=== PATIENT | male | born 1985 | race Caucasian/White ===

== ENCOUNTER 2018-10-14 18:47 | Emergency (ER) | payer OTHER, SELFPAY ==
--- NOTE | 2018-10-14 18:49 | ED.RN ---
NO OLD EKGS IN MUSE
[2018-10-14 18:51] VITALS: BP 166/104; PULSE 70; RESP 20; TEMP 36.8; O2SAT 99; BMI 31.2
--- NOTE | 2018-10-14 18:51 | EKG12_ITS ---
Test Reason : CP Blood Pressure : / mmHG Vent. Rate : 065 BPM Atrial Rate : 065 BPM P-R Int : 148 ms QRS Dur : 098 ms QT Int : 426 ms P-R-T Axes : 049 012 028 degrees QTc Int : 443 ms Normal sinus rhythm Normal ECG Confirmed by ROYA ATKINS, ANDRE ([id number]), editor sound HASMUKH GARCÍA ([id number]) on 10/16/2018 4:21:14 PM Referred By: CHERYLE Confirmed By:ANDRE PRYOR MD
--- NOTE | 2018-10-14 18:53 | ED.VISSUMM ---
- ER Visit Summary Date of Service: 10/14/18 Chief Complaint: Chest pain History of Present Illness: The patient is a 32 M presents the emergency department chest pain. Patient states symptoms began yesterday. He states he was getting up out of the chair and had a sudden onset pain in his chest. It did not radiate to his back or to his arms. He states he never really had pain like this before. He states it would come and go, but today has been constant. He states he feels like he can feel his heart beating in his chest. He has no history of coronary vascular disease. He takes no daily medications. He does not smoke. He denies any other systemic complaints. Physical Examination: Vital signs reviewed General: Well-nourished, well-developed Head: Normocephalic, atraumatic Eyes: Pupils equal and reactive, extraocular muscles intact Neck, supple, no lymphadenopathy Heart: Regular rate and rhythm Respiratory: No distress, clear bilaterally Abdomen: Soft, nontender, nondistended, no peritoneal signs Back: Nontender Extremities: Nontender, no edema, no cords Skin: Normal color no rash Neuro: Alert and oriented, no focal or lateralizing deficits Test Results: [] Emergency Department Course and Treatment: The patient's pain does seem very atypical. It is worse when he moves. I really cannot reproduce it on exam. His EKG is obtained and is workable. There is no acute ischemia. Chest x-ray is also unremarkable. Cardiac enzymes are normal. The patient has had constant pain for greater than 12 hours. I do feel that the safely rules him out for acute coronary syndrome. He has a heart score of 0. I do not feel that repeat enzymes are necessary given his constant pain, negative EKG, negative workup. At this time, I do feel the patient is safe for outpatient follow-up. He is counseled on concerning symptoms and reasons to return. He will be discharged home. Treatment Plan: [] Disposition: Discharge Impression: 1. Chest pain This note was generated with [employer] dictation software. It may contain incorrect words, spelling, and punctuation that were not noted in review of the chart prior to signing ED Disposition - Plan for ED Patient: Chief Complaint: Chest Pain Instructions: ED Chest Pain Atypical Unkn Cause Referrals: Dhruv Mota DO [NON CLINICAL AFFILIATE] -
--- NOTE | 2018-10-14 18:55 | RAD_ITS ---
STUDY: X-RAY CHEST REASON FOR EXAM: Male, 32 years old. Chest pain. TECHNIQUE: Portable chest. COMPARISON: None. FINDINGS: The lungs are clear and expanded. There is no demonstrated pleural abnormality. Normal size heart. Normal mediastinum and samara. Normal visualized pulmonary arteries. Normal visualized aortic arch and descending thoracic aorta. Normal visualized thoracic spine. Normal visualized ribs, clavicles, and shoulders. There is no demonstrated abnormality of the visualized soft tissue structures of the upper abdomen. RAD/Chest 1 View (Portable) IMPRESSION: Normal x-ray examination of the chest. Electronically Signed: Indiana Farooq MD at 19:50 EST Tel , Service support ,
[2018-10-14] MEDS: Aspirin 81 MG TAB.CHEW 324 MG PO (18:57)
[2018-10-14] MEDS: 0.9% Normal Saline 1,000 ML 150 ML IV (18:59)
[2018-10-14 19:17] LABS: Absolute Neutrophil Count 6.5 X10^3/uL (2.0-7.7); Basophil# 0.02 X10^3/uL; Basophil% 0.2 % (0-1); Eosinophil# 0.12 X10^3/uL; Eosinophils% 1.2 % (0-5); Hematocrit 43.3 % (40-54); Hemoglobin 15.2 g/dl (13.0-16.5); Lymphocyte % 24.8 % (19-41); Mean Corp Hgb Conc 35.1 g/gl (32-36); Mean Corpuscular Hgb 29.9 pg (27.0-32.0); Mean Corpuscular Volume 85.1 fL (80-94); Mean Platelet Vol. 9.9 fl (6.2-12.0); Monocyte% 6.2 % (0-10); Neutrophil % 67.4 % (47-70); Platelet Count 244 K/mm3 (150-450); RBC Distribution Width CV 11.8 % (11.6-14.6); RBC Distribution Width SD 36.6 fl (35.1-43.9); Red Blood Count 5.09 M/mm3 (4.6-6.2); White Blood Count 9.7 K/mm3 (4.4-11.0)
[2018-10-14 19:18] LABS: POSITIVE COUNT NO; POSITIVE DIFFERENTIAL NO; POSITIVE MORPHOLOGY NO
[2018-10-14 19:27] LABS: Anion Gap 6 (5-15); BUN 9 mg/dL (7-18); BUN/Creat Ratio 9.2 RATIO (10-20); Calcium,Total 8.9 mg/dL (8.5-10.1); Chloride 103 mmol/L (98-107); Creatinine, Serum 0.97 mg/dL (0.70-1.30); EST Glomerular Filtration Rate 94 mL/min (>60); Est Glom Filt Rate - Afr Amer 114 mL/min (>60); Estimated Creatinine Clearance 130.67 ml/min; Glucose 92 mg/dL (74-106); Potassium 3.7 mmol/L (3.5-5.1); Sodium Level 137 mmol/L (136-145)
[2018-10-14 19:51] VITALS: BP 157/92; PULSE 71; RESP 16; O2SAT 99
== END 2018-10-14 19:52 | disposition home or self-care (01) ==
LOC: ED 19:09
PROVIDERS: Emergency Provider Emergency Medicine
DX: R07.9 Chest pain, unspecified (principal)
CPT/HCPCS: 71045; 80048; 84484; 85025; 93005; 96360; 99284; J7030

== ENCOUNTER 2020-10-19 17:40 | Emergency (ER) | payer OTHER, SELFPAY ==
[2020-10-19 17:41] VITALS: BP 158/76; PULSE 78; RESP 18; TEMP 36.6; O2SAT 100; BMI 29.9
--- NOTE | 2020-10-19 17:47 | EKG12_ITS ---
Test Reason : CP Blood Pressure : / mmHG Vent. Rate : 069 BPM Atrial Rate : 069 BPM P-R Int : 152 ms QRS Dur : 104 ms QT Int : 416 ms P-R-T Axes : 074 054 050 degrees QTc Int : 445 ms Normal sinus rhythm Normal ECG Confirmed by STEVIE ATKINS, BONNIE ([id number]), editor book BREE PERALTA ([id number]) on 10/21/2020 9:41:10 AM Referred By: BEV Confirmed By:BONNIE HUBBARD MD
--- NOTE | 2020-10-19 17:50 | RAD_ITS ---
STUDY: X-RAY CHEST REASON FOR EXAM: Male, 34 years old. CP started this am to mid chest, pain is now going to rt jaw TECHNIQUE: Single frontal view of the chest. COMPARISON: Chest x-ray 10/14/2018 FINDINGS: The lungs are clear and expanded. There is no demonstrated pleural abnormality. Normal size heart. Normal mediastinum and samara. Normal visualized pulmonary arteries. Normal visualized aortic arch and descending thoracic aorta. Normal visualized thoracic spine. Normal visualized ribs, clavicles, and shoulders. There is no demonstrated abnormality of the visualized soft tissue structures of the upper abdomen. RAD/Chest 1 View (Portable) IMPRESSION: Normal x-ray examination of the chest. Electronically Signed: Eladio Hale MD at 18:37 EST , Service support ,
[2020-10-19 18:21] LABS: Absolute Lymphocyte Count 4.11 X10^3/uL (0.83-4.51); Absolute Neutrophil Count 5.1 X10^3/uL (2.0-7.7); Basophil# 0.03 X10^3/uL; Basophil% 0.3 % (0-1); Eosinophil# 0.11 X10^3/uL; Eosinophils% 1.1 % (0-5); Hematocrit 40.1 % (40-54); Hemoglobin 14.3 g/dL (13.0-16.5); Lymphocyte # 4.11 X10^3/ul (4.0); Mean Corp Hgb Conc 35.7 g/dL (32-36); Mean Corpuscular Volume 84.2 fL (80-94); Mean Platelet Vol. 9.7 fl (6.2-12.0); Monocyte# 0.69 X10^3/uL; Monocyte% 6.9 % (0-10); NRBC Flagged by Analyzer 0 % (0-5); Neutrophil # 5.05 X10^3/uL (2.7-7.7); Neutrophil % 50.4 % (47-70); Platelet Count 236 K/mm3 (150-450); RBC Distribution Width SD 36.5 fl (35.1-43.9); Red Blood Count 4.76 M/mm3 (4.6-6.2)
[2020-10-19 18:32] VITALS: BP 145/87; PULSE 79; RESP 16; O2SAT 98
--- NOTE | 2020-10-19 18:36 | ED.DCSUM_ITS ---
- ER Visit Summary Date of Service: 10/19/20 Chief Complaint: Chest pain History of Present Illness: The patient is a 34 M with no primary care physician. He reports that he has chest pain began this morning. Radiates up into the right side of his jaw. Said continuous pain that waxes and wanes. He describes this as a tightness. Is 3-10 worsened 2 out of 10 currently. Is worsened by nothing including exertion or deep breaths. Also relieved relieved by nothing. He denies any associated nausea, vomiting, diaphoresis, or shortness of breath. He reports that a similar episode 2 years ago. He is never had a stress test or heart catheterization. He does have a family history of coronary artery disease. No ankle swelling or calf pain. No personal or family history of DVT. No recent travel. He denies any chest pain with exertion or change in dyspnea exertion in the past month. Physical Examination: Vitals: Stable. Afebrile. General: Well-nourished and well-developed. Head: Normocephalic atraumatic. Neck: Supple, no lymphadenopathy. No JVD. Nontender. Cardiovascular: Regular rate and rhythm. No murmurs. Respiratory: No respiratory distress. Clear to auscultation bilaterally. Abdominal: Soft, nontender, nondistended, normal bowel sounds. No guarding, rebound, or peritoneal signs. Back: Nontender. Extremities: Nontender, no edema. Skin: Normal color, no rash. Neurologic: Alert and oriented ?3. Cranial nerves II through XII are intact. Normal strength and sensation. Psych: Normal affect. Test Results: EKG is sinus at 69 with no acute changes. CBC is normal. Chem-7 shows potassium 3.3. Troponin is negative. Clinical Impression(s) from Imaging Studies Chest X-Ray 10/19/20 17:50 IMPRESSION: Normal x-ray examination of the chest. Electronically Signed: Eladio Hael MD at 18:37 EST , Service support , Emergency Department Course and Treatment: Patient had an IV placed. He refused pain medications. He is resting comfortably. Treatment Plan: Patient will be discharged instructions to follow-up with Dr. Donohue as soon as possible. Return to the emergency department for any worsening symptoms. Disposition: To home in improved and stable condition. Impression: 1. Atypical chest pain. 2. MIHIR score of 0. 3. Heart score of 1. This note was generated with [employer] dictation software. It may contain incorrect words, spelling, and punctuation that were not noted in review of the chart pr ior to signing ED Disposition - Plan for ED Patient: Instructions: ED Chest Pain, Uncertain Cause Referrals: Bambi Donohue MD [STAFF PHYSICIAN] - As soon as possible
[2020-10-19 18:38] LABS: Anion Gap 6 (5-15); BUN 11 mg/dL (7-18); BUN/Creat Ratio 12.4 RATIO (10-20); Calcium,Total 8.7 mg/dL (8.5-10.1); Chloride 102 mmol/L (98-107); Creatinine, Serum 0.89 mg/dL (0.70-1.30); EST Glomerular Filtration Rate 104 mL/min (>60); Est Glom Filt Rate - Afr Amer 126 mL/min (>60); Estimated Creatinine Clearance 139.78 ml/min; Glucose 92 mg/dL (74-106); Potassium 3.3 mmol/L (3.5-5.1); Sodium Level 135 mmol/L (136-145)
[2020-10-19 19:01] VITALS: BP 145/80; PULSE 76; RESP 16
== END 2020-10-19 19:02 | disposition home or self-care (01) ==
LOC: ED 18:22
PROVIDERS: Emergency Provider Emergency Medicine
DX: R07.89 Other chest pain (principal)
CPT/HCPCS: 71045; 80048; 84484; 85025; 93005; 99284

== ENCOUNTER → 2020-11-09 14:28 | Outpatient (CLI) | payer OTHER, SELFPAY ==
[2020-11-09 13:56] VITALS: BMI 32.2
[2020-11-09 16:44] LABS: ALB/GLOB Ratio 1.3 RATIO (0.9-2.4); AST(SGOT) 14 U/L (15-37); Alanine Aminotransfer ALT/SGPT 31 U/L (16-61); Albumin, Serum 4.6 g/dL (3.2-5.0); Alkaline Phosphatase 95 U/L (45-117); Anion Gap 4 (5-15); BUN 7 mg/dL (7-18); BUN/Creat Ratio 8.7 RATIO (10-20); Chloride 103 mmol/L (98-107); Cholesterol 192 mg/dL (200); EST Glomerular Filtration Rate 116 mL/min (>60); Est Glom Filt Rate - Afr Amer 140 mL/min (>60); Globulin 3.6 g/dL (2.2-4.2); Glucose 84 mg/dL (74-106); High Density Lipoprotein 53 mg/dL; Potassium 4.2 mmol/L (3.5-5.1); Protein, Total 8.2 g/dL (6.4-8.2); Sodium Level 137 mmol/L (136-145); Triglycerides 68 mg/dL; Very Low Density Lipoprotein 14 mg/dL (5-40)
== END ==
PROVIDERS: PCP Internal Medicine; Visit Provider Internal Medicine
DX: I10 Essential (primary) hypertension (principal); E87.6 Hypokalemia
CPT/HCPCS: 36415; 80053; 80061

== ENCOUNTER → 2020-11-18 09:45 | Outpatient (CLI) | payer OTHER, SELFPAY ==
[2020-11-09 13:56] VITALS: BMI 32.2
--- NOTE | 2020-11-18 12:50 | STRESSREP ---
Stress Test Report Exercise stress test. 35-year-old man with a history of chest pain. Stress protocol: Resting EKG demonstrates normal sinus rhythm with a rate of 71 bpm normal intervals are noted resting blood pressure is 132/82 mmHg. The patient exercised according to regular Evan protocol for a total duration of 13 minutes. The maximum heart rate attained was 176 bpm which was 95% of max impacted heart rate the maximum workload was 15.3 metabolic equivalents. At rest there were no ST or T wave changes noted suggest ischemia peak exercise upsloping ST changes were noted we did not meet the criteria for ischemia. No chest pain was noted the exercise test was stopped due to attainment of target heart rate. No clinical angina was noted the peak blood pressure was 206/72 mmHg. Conclusion: Exercise stress test with no EKG criteria for ischemia at a high workload. Excellent functional capacity. No clinical angina.
== END ==
PROVIDERS: PCP Internal Medicine; Referring Provider Internal Medicine; Visit Provider Internal Medicine
DX: R07.89 Other chest pain (principal)
CPT/HCPCS: 93017

== ENCOUNTER 2021-04-29 19:59 | Emergency (ER) | payer OTHER, SELFPAY ==
[2020-12-10 17:18] VITALS: BMI 32.7
[2021-04-29 20:00] VITALS: BP 167/84; PULSE 62; RESP 18; TEMP 37.1; O2SAT 98; BMI 28.7
--- NOTE | 2021-04-29 20:18 | CT_ITS ---
STUDY: CT BRAIN WITHOUT CONTRAST REASON FOR EXAM: Male, 35 years old. headache with dizziness and woosh sound in his ears RADIATION DOSAGE (If Supplied By Facility): CTDIvol = ( 30.48 ) mGy, DLP = ( 1534.04 ) mGycm TECHNIQUE: Transaxial CT imaging of the brain was performed without administration of intravenous contrast material. Individualized dose optimization techniques were used for this CT. COMPARISON: None. FINDINGS: Normal soft tissue structures. Normal calvarium. Normal size ventricles and extra-axial spaces for the patient''s age. Normal white matter tracts of the cerebral hemispheres. Normal basal ganglia and thalami. Normal brainstem. Normal cerebellum. There is no intracranial hemorrhage. There are no findings of an acute ischemic infarction. Normal visualized paranasal sinuses. IMPRESSION: Normal unenhanced CT scan of the brain. STUDY: CTA HEAD AND NECK WITH CONTRAST REASON FOR EXAM: Male, 35 years old. headache RADIATION DOSAGE (If Supplied By Facility): CTDIvol = ( 30.48 ) mGy, DLP = ( 1534.04 ) mGycm TECHNIQUE: CT angiography was performed with a multi-detector CT scanner. Data acquisition was obtained from the skull base through the vertex following intravenous administration of IV 100mL [id number]-[id number]. MIP images were reconstructed from the axial data set. Post-processing of the angiographic images was performed, with multiplanar reformation and 3D reconstruction. Individualized dose optimization techniques were used for this CT. COMPARISON: No relevant priors. FINDINGS: Normal bilateral petrous carotid arteries. Normal right cavernous carotid artery with a normal supraclinoid bifurcation. Normal left cavernous carotid artery with a normal supraclinoid bifurcation. Normal right A1 segments of the anterior cerebral artery. Normal left A1 segments of the anterior cerebral artery. Normal intact anterior communicating artery (ACOM). Normal bilateral A2 segments of the anterior cerebral arteries. Normal right M1 and M2 segments of the middle cerebral arteries, with a normal M1 bifurcation. Normal left M1 and M2 segments of the middle cerebral arteries, with a normal M1 bifurcation. Normal right posterior communicating artery (PCOM). There is non-visualization of the left posterior communicating artery (PCOM). Normal bilateral vertebral arteries. Normal basilar artery with a normal basilar bifurcation. The visualized bilateral superior cerebellar (SCA) arteries are normal. Normal bilateral P1, P2 and visualized P3 segments of the posterior cerebral arteries. There is no demonstrated aneurysm of the [place]. There is no demonstrated abnormality of the visualized brain. AORTIC ARCH: Normal visualized aortic arch. Normal origins of the brachiocephalic, left common carotid, and left subclavian arteries. RIGHT CAROTID ARTERIES: Normal right common carotid artery (CCA). Normal right common carotid bulb. Normal origin of the right internal carotid (ICA) artery without a hemodynamically significant stenosis. Normal visualized cervical portion of the right internal carotid artery. Normal origin of the right external carotid artery (ECA). LEFT CAROTID ARTERIES: Normal left common carotid artery (CCA). Normal left common carotid bulb. Normal origin of the left internal carotid (ICA) artery without a hemodynamically significant stenosis. Normal visualized cervical portion of the left internal carotid artery. Normal origin of the left external carotid artery (ECA). VERTEBRAL ARTERIES: There is enhancement within the bilateral vertebral arteries with a small right vertebral artery, and a dominant left vertebral artery. CT/CTA Head AND Neck W/ Contrast IMPRESSION: Normal CTA Head and neck with contrast. Electronically Signed: Rolf Champion MD at 21:56 EDT , Service support ,
--- NOTE | 2021-04-29 20:18 | EDS_ITS ---
HPI History of Present Illness Chief Complaint: Dizziness Detail of Chief Complaint: Headache and dizziness Informant: patient Onset/Context/Timing Current Severity: 0/10 Narrative Narrative: Patient presents to the emergency department with complaint of a headache that started 5 days ago. Patient states the headache came on suddenly and woke him up from sleep about 5:15 AM. Described it as right frontal. He complained of sounds bothering him at that time. Patient states that the headache eventually went away but he has been having intermittent lightheaded spells daily about 4-6 episodes per day. This morning he had a headache once again that caused him to have nausea and he vomited as well. Patient has been hearing a roaring or swishing sound in his right ear. Patient spoke with his mother who is a retired nurse she was concerned about aneurysm or brain tumor as both she and her brother had pituitary tumors. No family history of brain aneurysms. Patient does not have a history of migraines. Patient's mother does have migraines. Patient currently does not have a headache. Prior similar symptoms: No PFSH PFSH Medical History (Updated 04/29/21 @ 22:[address] Mariza Mckeon DO) History of fracture of finger History of fracture of nose Hypertension Home Medications NK 04/29/21 [History Last Taken Unknown] Allergy/AdvReac Type Severity Reaction Status Date / Time No Known Allergies Allergy Verified 04/29/21 20:03 Family History Father Hyperlipemia Grandfather Hyperlipemia Uncle Myocardial infarction, Onset Age: 56 Surgical History History of tonsillectomy Social History (Updated 12/10/20 @ 17:[address] Bambi Donohue MD) Smoking Status: Never smoker alcohol intake: current alcohol intake frequency: a few times a week substance use type: does not use what type of physical activity do you participate in: running and weight training frequency: daily ROS ROS ED Constitutional Constitutional ED: Reports systems reviewed and no addt'l complaints, except as documented; Denies body ache(s), change in weight or chills Eyes Eyes: Denies acute decrease in peripheral vision, change in vision, double vision or loss of vision ENT ENT ED: Reports none; Denies ear pain, lip swelling, loss taste/smell, neck pain, otalgia or sore throat Cardiovascular Cardiovascular: Reports none; Denies abdominal pain, chest pain with activity, leg edema, lightheadedness, palpitations, rapid heart rate or syncope Respiratory/Chest Respiratory/Chest: Reports none; Denies change in mental status, dry cough, dyspnea, hemoptysis, shortness of breath at rest or shortness of breath with exertion Gastrointestinal Gastrointestinal: Reports none; Denies abdominal pain, change in stool charac ter, diarrhea, hematemesis, hematochezia, melena, rectal bleeding or vomiting Genitourinary Genitourinary ED: Reports none; Denies abdominal discomfort, anuria, dysuria, genital pain or polyuria Musculoskeletal Musculoskeletal: Reports none; Denies arthralgias, back pain, difficulty walking, extremity pain, muscle weakness or myalgias Integumentary Reports none; Denies abscess or rash Neurologic Neurologic: Reports headache(s) and other Details: Lightheadedness and dizziness Psychiatric Psychiatric: Reports systems reviewed and no addt'l complaints, except as documented and none; Denies behavioral changes, confusion, difficulty concentrating, hallucinations, suicidal ideation, tactile hallucinations or visual hallucinations Endocrine Endocrinology: Denies none, cold intolerance, excessive sweating, fatigue or heat intolerance Hematologic/Lymphatic Hematologic/Lymphatic: Reports none; Denies anemia, easy bleeding or easy bruising Allergic/Immunologic Allergic/Immunologic ED: Denies as per HPI, none, lip swelling, mouth swelling, throat swelling, tongue swelling or hives EXAM Physical Exam Const Vital Signs: 04/29/21 20:00 04/29/21 20:17 04/29/21 22:00 Temperature 98.8 F Temperature Source Temporal Pulse Rate 62 59 L Respiratory Rate 18 15 Respiratory Effort Normal Non-Labored Respiratory Pattern Normal Blood Pressure 167/84 H 147/80 H Blood Pressure Mean 111 102 Pulse Ox 98 98 Oxygen Delivery Method Room Air Room Air Positive well nourished and well developed General Appearance ED: well developed and NAD HEENT Reports TM's clear and moist mucous membranes normocephalic and atraumatic; Negative for trauma or tenderness Tympanic Membrane ED: Yes TM's clear Eyes PERRL and EOMs intact bilaterally General Eye ED: Negative for pale conjunctiva or scleral icterus Neck no lymphadenopathy, supple and no JVD General: Negative for tenderness Chest Wall inspection of chest normal and palpation of chest normal Chest: Negative for tenderness Resp normal respiratory effort and clear to auscultation bilaterally Effort and Inspection: Negative for respiratory distress or pain with movement Auscultation: Negative for rhonchi, wheezes or diminished lung sounds Cardio regular rate, regular rhythm, S1 normal heart sound, S2 normal heart sound and no murmurs Peripheral Pulses: pulses 2+ throughout GI normal to inspection, nondistended, normoactive bowel sounds, soft to palpation, non-tender, non-distended and no masses Back/Spine no CVA tenderness and no thoracic nor lumbar tenderness Extremity normal to inspection General Extremety ED: Negative for edema General Extremity: Negative for edema Neuro oriented x3, CN's II-XII intact bilaterally, no sensory deficits noted and gait normal Sensorium / Orientation: awake, alert, oriented to person, oriented to place and oriented to time Motor Exam: strength 5/5 throughout and strength abnormal Psych mental status grossly normal Skin no rashes or lesions noted and no wounds MDM MDM MDM Narrative Medical decision making narrative: Patient's work-up unremarkable in the emergency department. I suspect patient may be having migraines. Patient to follow-up with primary care physician in 3 to 5 days. Patient advised to return if worsening headache, difficulty with balance or speech, or condition should worsen any way. Lab Data Attestation: I reviewed the patient's lab results. Labs: Laboratory Results - last 24 hr 04/29/21 04/29/21 20:11 20:11 WBC 9.1 RBC 4.59 L Hgb 13.6 Hct 39.1 L MCV 85.2 MCH 29.6 MCHC 34.8 RDW Std Deviation 34.9 L RDW Coeff of Wendy 11.4 L Plt Count 245 MPV 9.7 Immature Gran % (Auto) 0.200 Neut % (Auto) 65.3 Lymph % (Auto) 26.9 [place] % (Auto) 7.1 Eos % (Auto) 0.3 Baso % (Auto) 0.2 Absolute Neuts (auto) 5.9 Absolute Lymphs (auto) 2.45 Nucleated RBC % 0 Sodium 137 Potassium 3.6 Chloride 103 Carbon Dioxide 28.0 Anion Gap 6 BUN 7 Creatinine 0.92 Estim Creat Clear Calc 133.94 Est GFR (MDRD) Af Amer 121 Est GFR (MDRD) Non-Af 100 BUN/Creatinine Ratio 7.6 L Glucose 101 Calcium 8.9 Radiography Diagnostic Testing: Radiology Impression Head/Neck CTA 04/29/21 20:18 IMPRESSION: Normal CTA Head and neck with contrast. Electronically Signed: Rolf Champion MD at 21:56 EDT , Service support , Discharge Plan Triage Chief Complaint: Dizziness ED Provider: Mariza Mckeon Dx/Rx/DC Orders Clinical Impression: Migraine Instructions: ED Dizziness, Uncertain Cause, ED, Migraine (Classical) Prescriptions: No Action NK RF: 0 Primary Care Provider: Bambi Donohue Referrals: Bambi Donohue MD [Primary Care Provider] - 3-5 Days Disposition Disposition: Home, self care
[2021-04-29 20:24] LABS: Absolute Lymphocyte Count 2.45 X10^3/uL (0.83-4.51); Absolute Neutrophil Count 5.9 X10^3/uL (2.0-7.7); Basophil# 0.02 X10^3/uL; Basophil% 0.2 % (0-1); Eosinophil# 0.03 X10^3/uL; Eosinophils% 0.3 % (0-5); Hematocrit 39.1 % (40-54); Hemoglobin 13.6 g/dL (13.0-16.5); Lymphocyte # 2.45 X10^3/ul (0.83-4.51); Lymphocyte % 26.9 % (19-41); Mean Corp Hgb Conc 34.8 g/dL (32-36); Mean Corpuscular Hgb 29.6 pg (27.0-32.0); Mean Corpuscular Volume 85.2 fL (80-94); Mean Platelet Vol. 9.7 fl (6.2-12.0); Monocyte# 0.65 X10^3/uL; Monocyte% 7.1 % (0-10); NRBC Flagged by Analyzer 0 % (0-5); Neutrophil # 5.94 X10^3/uL (2.7-7.7); Neutrophil % 65.3 % (47-70); Platelet Count 245 K/mm3 (150-450); RBC Distribution Width CV 11.4 % (11.6-14.6); RBC Distribution Width SD 34.9 fl (35.1-43.9); Red Blood Count 4.59 M/mm3 (4.6-6.2); White Blood Count 9.1 K/mm3 (4.4-11.0)
[2021-04-29 20:34] LABS: Anion Gap 6 (5-15); BUN 7 mg/dL (7-18); BUN/Creat Ratio 7.6 RATIO (10-20); Calcium,Total 8.9 mg/dL (8.5-10.1); Chloride 103 mmol/L (98-107); Creatinine, Serum 0.92 mg/dL (0.70-1.30); EST Glomerular Filtration Rate 100 mL/min (>60); Est Glom Filt Rate - Afr Amer 121 mL/min (>60); Estimated Creatinine Clearance 133.94 ml/min; Glucose 101 mg/dL (74-106); Potassium 3.6 mmol/L (3.5-5.1); Sodium Level 137 mmol/L (136-145)
[2021-04-29 22:00] VITALS: BP 147/80; PULSE 59; RESP 15; O2SAT 98
== END 2021-04-29 22:19 | disposition home or self-care (01) ==
PROVIDERS: Emergency Provider Emergency Medicine; PCP Internal Medicine
DX: G43.909 Migraine, unspecified, not intractable, without status migrainosus (principal)
CPT/HCPCS: 70496; 70498; 80048; 85025; 99283; Q9967; A4216

== ENCOUNTER → 2021-05-05 | Outpatient (CLI) | payer OTHER, SELFPAY ==
[2021-05-04 08:35] VITALS: BMI 28.7
[2021-05-10 20:07] LABS: Metanephrine, Ur 23 ug/L (Undefined); Normetanephrines, 24Ur 260 ug/24 hr (156-729); Normetanephrines, Ur 49 ug/L (Undefined)
[2021-05-11 11:04] LABS: Metanephrines, 24Ur 122 ug/24 hr (58-276)
== END | disposition home or self-care (01) ==
LOC: LABSPEC 09:58
PROVIDERS: PCP Internal Medicine; Referring Provider Internal Medicine; Visit Provider Internal Medicine
DX: I10 Essential (primary) hypertension (principal)
CPT/HCPCS: 81050; 83835

== ENCOUNTER 2021-05-19 18:15 | Emergency (ER) | payer OTHER, SELFPAY ==
[2021-05-04 08:35] VITALS: BMI 28.7
--- NOTE | 2021-05-19 18:18 | CT_ITS ---
We are attempting to reach an attending provider to discuss findings. An addendum with communication details will be sent when the communication is complete. STUDY: CT HEAD STROKE PROTOCOL W/O CONTRAST INJECTION REASON FOR EXAM: Male, 35 years old. EYE DISTRURBANCE RADIATION DOSAGE (If Supplied By Facility): CTDIvol = ( ) mGy, DLP = ( ) mGycm TECHNIQUE: Transaxial CT imaging of the brain was performed without administration of intravenous contrast material. Individualized dose optimization techniques were used for this CT. COMPARISON: No relevant priors. FINDINGS: Normal soft tissue structures. Normal calvarium. Normal size ventricles and extra-axial spaces for the patient''s age. Normal white matter tracts of the cerebral hemispheres. Normal basal ganglia and thalami. Normal brainstem. Normal cerebellum. There is no intracranial hemorrhage. There are no findings of an acute ischemic infarction. Normal visualized paranasal sinuses. ASPECT score: CT/STROKE Brain/Head without Cont IMPRESSION: Normal unenhanced CT scan of the brain. Electronically Signed: Duong Corbett MD at 18:35 EDT Tel , Service support ,
--- NOTE | 2021-05-19 18:21 | EKG12_ITS ---
Test Reason : STROKE Blood Pressure : / mmHG Vent. Rate : 056 BPM Atrial Rate : 056 BPM P-R Int : 156 ms QRS Dur : 100 ms QT Int : 428 ms P-R-T Axes : 016 026 038 degrees QTc Int : 413 ms Sinus bradycardia RSR' or QR pattern in V1 suggests right ventricular conduction delay Borderline ECG Confirmed by ROYA ATKINS, ANDRE ([id number]), marketing editor BREE PERALTA ([id number]) on 05/21/2021 1:09:50 PM Referred By: MIREYA Confirmed By:ANDRE PRYOR MD
[2021-05-19 18:28] VITALS: BP 154/88; PULSE 55; RESP 12; TEMP 36.5; O2SAT 100
[2021-05-19 18:32] LABS: Absolute Lymphocyte Count 3.06 X10^3/uL (0.83-4.51); Absolute Neutrophil Count 5.6 X10^3/uL (2.0-7.7); Basophil# 0.02 X10^3/uL; Basophil% 0.2 % (0-1); Eosinophil# 0.11 X10^3/uL; Eosinophils% 1.2 % (0-5); Hematocrit 40.7 % (40-54); Hemoglobin 14.1 g/dL (13.0-16.5); Lymphocyte # 3.06 X10^3/ul (0.83-4.51); Lymphocyte % 32.2 % (19-41); Mean Corp Hgb Conc 34.6 g/dL (32-36); Mean Corpuscular Hgb 29.3 pg (27.0-32.0); Mean Corpuscular Volume 84.4 fL (80-94); Mean Platelet Vol. 9.7 fl (6.2-12.0); Monocyte# 0.68 X10^3/uL; Monocyte% 7.2 % (0-10); NRBC Flagged by Analyzer 0 % (0-5); Platelet Count 270 K/mm3 (150-450); RBC Distribution Width CV 11.4 % (11.6-14.6); RBC Distribution Width SD 34.8 fl (35.1-43.9); Red Blood Count 4.82 M/mm3 (4.6-6.2); White Blood Count 9.5 K/mm3 (4.4-11.0)
[2021-05-19 18:33] VITALS: TEMP 36.5; BMI 28.9
[2021-05-19 18:45] LABS: Anion Gap 7 (5-15); BUN 8 mg/dL (7-18); BUN/Creat Ratio 9.4 RATIO (10-20); Calcium,Total 8.5 mg/dL (8.5-10.1); Chloride 102 mmol/L (98-107); Creatinine, Serum 0.85 mg/dL (0.70-1.30); EST Glomerular Filtration Rate 109 mL/min (>60); Est Glom Filt Rate - Afr Amer 132 mL/min (>60); Estimated Creatinine Clearance 144.98 ml/min; Glucose 104 mg/dL (74-106); Potassium 4.1 mmol/L (3.5-5.1); Sodium Level 138 mmol/L (136-145)
--- NOTE | 2021-05-19 18:55 | NURSING ---
Intermittent L arm parasthesias- and numbness around mouth- Dr. Mustafa made aware.
[2021-05-19 19:15] VITALS: BP 126/82; PULSE 55; RESP 14; O2SAT 100
[2021-05-19 19:23] LABS: International Normalized Ratio 1.1; Prothrombin Time (Protime)PT. 13.2 SECONDS (11.7-14.9)
--- NOTE | 2021-05-19 19:37 | EX.ED.DYSGE1 ---
HPI History of Present Illness Chief Complaint: Numb/Ting Narrative Narrative: Patient has a history of migraines these were recently diagnosed, he had some numbness and some decreased left-sided peripheral vision that was very transient about 5 minutes. Now he has some pressure in the front of his head. He had a recent work-up including normal cervical vessels. He has no fever chills he has no neck pain or stiffness. [facility] Medical History (Updated 05/19/21 @ 19:[address] James Mustafa MD) History of fracture of finger History of fracture of nose Hypertension Migraine Home Medications hydroxycut PO 05/04/21 [History Last Taken Unknown] multivitamin 1 tab PO DAILY 05/04/21 [History Last Taken Unknown] propranolol 60 mg capsule,24 hr,extended release 60 mg PO QHS #30 cap 05/04/21 [Rx Last Taken Unknown] sumatriptan succinate 25 mg tablet See Rx Instructions PO .COMPLEX #10 tab 05/04/21 [Rx Last Taken Unknown] Allergy/AdvReac Type Severity Reaction Status Date / Time No Known Allergies Allergy Verified 05/04/21 08:32 Family History Father Hyperlipemia Grandfather Hyperlipemia Uncle Myocardial infarction, Onset Age: 56 Surgical History History of tonsillectomy Social History Smoking Status: Never smoker alcohol intake: current alcohol intake frequency: a few times a week substance use type: does not use what type of physical activity do you participate in: running and weight training frequency: daily ROS ROS ED ROS Narrative Past medical history: Reviewed Medications: Reviewed Social history: Noncontributory Review of systems: All systems negative except as indicated General: No fever Eyes: As in HPI ENT: No upper airway congestion, normal voice Neck: No neck pain Cardiovascular: No chest pain Respiratory: No shortness of breath or cough Gastrointestinal: No abdominal pain, nausea vomiting or diarrhea Genitourinary: No dysuria Musculoskeletal: Denies myalgias no difficulty with ambulation Skin: No rash Neurological: No memory loss, confusion or any focal weakness Psych: No recent behavioral changes Hematologic: No easy bleeding or easy bruising EXAM Physical Exam Narrative Exam Narrative: Physical exam General: Well nourished, Well developed, No Acute Distress Head: Normocephalic, Atraumatic Eyes: Conjunctiva not pale ENT: Moist mucous membranes Neck: Supple, Nontender, No lymphadenopathy Cardiovascular: Regular rate, Regular rhythm Respiratory: No distress, CTA bilaterally Abdomen: Soft, Nontender, Nondistended Back: Nontender, Normal Inspection. Negative for: CVA tenderness Extremities: Nontender, No edema Skin: Normal color, No rash Neurological: Alert, Normal Strength, Normal Sensation. Bedside NIH stroke scale is 0 Psychological: Normal affect Const Vital Signs: 05/19/21 18:28 05/19/21 18:33 05/19/21 19:15 Temperature 97.7 F L 97.7 F L Temperature Source Temporal Temporal Pulse Rate 55 L 55 L Respiratory Rate 12 14 Blood Pressure 154/88 H 126/82 H Blood Pressure Mean 110 96 Pulse Ox 100 100 Oxygen Delivery Method Room Air MDM MDM MDM Narrative Medical decision making narrative: Patient has a normal work-up. He appears well, I do not believe this is a stroke. The stroke team was called per protocol which was quite appropriate however after the negative CT and the evaluation I believe this is a migraine prodrome symptom. I will discharge him in stable condition. I will refer him to neurology. Lab Data Labs: Laboratory Results - last 24 hr 05/19/21 05/19/21 05/19/21 18:20 18:20 18:20 WBC 9.5 RBC 4.82 Hgb 14.1 Hct 40.7 MCV 84.4 MCH 29.3 MCHC 34.6 RDW Std Deviation 34.8 L RDW Coeff of Wendy 11.4 L Plt Count 270 MPV 9.7 Immature Gran % (Auto) 0.200 Neut % (Auto) 59.0 Lymph % (Auto) 32.2 [place] % (Auto) 7.2 Eos % (Auto) 1.2 Baso % (Auto) 0.2 Absolute Neuts (auto) 5.6 Absolute Lymphs (auto) 3.06 Nucleated RBC % 0 PT 13.2 INR 1.1 Sodium 138 Potassium 4.1 Chloride 102 Carbon Dioxide 29.0 Anion Gap 7 BUN 8 Creatinine 0.85 Estim Creat Clear Calc 144.98 Est GFR (MDRD) Af Amer 132 Est GFR (MDRD) Non-Af 109 BUN/Creatinine Ratio 9.4 L Glucose 104 Calcium 8.5 Radiography Diagnostic Testing: Radiology Impression Brain CT 05/19/21 18:18 IMPRESSION: Normal unenhanced CT scan of the brain. Electronically Signed: Duong Corbett MD at 18:35 EDT Tel , Service support , ADDENDUM: 05/19/21 1842 IMPRESSION: Normal unenhanced CT scan of the brain. N.B. : The above Results were Read Back by Duong Corbett MD to DESIREE silverio, and understanding confirmed on 05/19/2021 18:35:52 (ET). Electronically Signed: Duong Corbett MD at 18:35 EDT Tel , Service support , Discharge Plan Triage Chief Complaint: Numb/Ting ED Provider: James Mustafa Dx/Rx/DC Orders Clinical Impression: Migraine Instructions: Headache Migraine Stages Tx Prescriptions: No Action hydroxycut PO RF: 0 multivitamin Tablet 1 tab PO DAILY RF: 0 propranolol 60 mg capsule,extended release 24 hr 60 mg PO QHS Qty: 30 RF: 1 sumatriptan succinate [Imitrex] 25 mg tablet See Rx Instructions PO .COMPLEX Qty: 10 RF: 0 Primary Care Provider: Bambi Donohue Referrals: Bambi Donohue MD [Primary Care Provider] - Donald Ramirez MD [STAFF PHYSICIAN] - 3-5 Days Disposition Disposition: Home, Self Care
[2021-05-19] MEDS: Ketorolac 15 MG/ML Vial IV (19:51)
[2021-05-19] MEDS: DiphenhydrAMINE 50 MG/ML Syringe 25 MG IV (19:51)
[2021-05-19] MEDS: Metoclopramide 10 MG/2 ML Vial IV (19:51)
[2021-05-19 20:00] VITALS: BP 130/80
[2021-05-20 10:00] LABS: Bedside Glucose 103 mg/dL (70-110)
== END 2021-05-19 20:07 | disposition home or self-care (01) ==
PROVIDERS: Emergency Provider Emergency Medicine; PCP Internal Medicine
DX: G43.909 Migraine, unspecified, not intractable, without status migrainosus (principal); I10 Essential (primary) hypertension; Z79.899 Other long term (current) drug therapy
CPT/HCPCS: 70450; 80048; 82962; 85025; 85610; 93005; 96374; 96375; 99283; A4216

== ENCOUNTER → 2021-07-20 10:58 | Outpatient (CLI) | payer OTHER, SELFPAY ==
[2021-06-22 09:03] VITALS: BMI 30.1
--- NOTE | 2021-07-20 11:03 | MRI_ITS ---
STUDY: MRI BRAIN WITH AND WITHOUT CONTRAST REASON FOR EXAM: Male, 35 years old. Migraine Headaches- sudden onset 3 mos ago TECHNIQUE: Standardized multiplanar fat and water weighted pulse sequences were obtained. 20ml IV Dotarem was administered for the contrast portion of the examination. COMPARISON: 05/19/2021 FINDINGS: Normal size of the ventricles and extra-axial spaces for the patient''s age. Normal white matter tracts of the supratentorial brain. Normal bilateral basal ganglia. Normal thalami. There is no extra-axial fluid accumulation. There is no enhancing intra-axial or extra-axial abnormality. Normal sella turcica, pituitary gland, infundibular stalk, optic chiasm and hypothalamus. Normal tectal plate and pineal gland. Normal midbrain, amilcar and medulla. Normal cerebellum. Normal basal cisterns. MRI/Brain W/WO Contrast IMPRESSION: Unremarkable unenhanced and enhanced MRI of the brain. Electronically Signed: Christ Purdy MD at 9:12 EDT Tel , Service support ,
[2021-07-20 11:25] LABS: CREATININE FINGERSTICK 0.7 mg/dL (0.70-1.30); EGFR FINGERSTICK > 60.0000 mL/min (>60)
== END ==
PROVIDERS: PCP Internal Medicine; Referring Provider Psychiatry & Neurology Neurology; Visit Provider Psychiatry & Neurology Neurology
DX: G43.909 Migraine, unspecified, not intractable, without status migrainosus (principal)
CPT/HCPCS: 70553; A9575

== ENCOUNTER → 2023-06-12 | Outpatient (CLI) | payer OTHER, SELFPAY ==
[2023-06-12 12:56] LABS: Absolute Lymphocyte Count 2.07 X10^3/uL (0.83-4.51); Basophil# 0.03 X10^3/uL; Basophil% 0.4 % (0-1); Eosinophil# 0.11 X10^3/uL; Eosinophils% 1.4 % (0-5); Hematocrit 43.3 % (40-54); Hemoglobin 14.5 g/dL (13.0-16.5); Lymphocyte # 2.07 X10^3/ul (0.83-4.51); Lymphocyte % 26.2 % (19-41); Mean Corp Hgb Conc 33.5 g/dL (32-36); Mean Corpuscular Volume 89.6 fL (80-94); Mean Platelet Vol. 10.6 fl (6.2-12.0); Monocyte# 0.63 X10^3/uL; NRBC Flagged by Analyzer 0 % (0-5); Neutrophil # 5.03 X10^3/uL (2.7-7.7); Neutrophil % 63.5 % (47-70); Platelet Count 259 K/mm3 (150-450); RBC Distribution Width CV 11.8 % (11.6-14.6); RBC Distribution Width SD 38.1 fl (35.1-43.9); Red Blood Count 4.83 M/mm3 (4.6-6.2); White Blood Count 7.9 K/mm3 (4.4-11.0)
[2023-06-12 13:32] LABS: ALB/GLOB Ratio 1.2 RATIO (0.9-2.4); AST(SGOT) 13 U/L (15-37); Alanine Aminotransfer ALT/SGPT 21 U/L (16-61); Alkaline Phosphatase 85 U/L (45-117); Anion Gap 1 (5-15); BUN 10 mg/dL (7-18); BUN/Creat Ratio 11.4 RATIO (10-20); Chloride 105 mmol/L (98-107); Cholesterol 186 mg/dL (200); Creatinine, Serum 0.88 mg/dL (0.70-1.30); EST Glomerular Filtration Rate 104 mL/min (>60); Est Glom Filt Rate - Afr Amer 125 mL/min (>60); Globulin 3.2 g/dL (2.2-4.2); Glucose 99 mg/dL (74-106); High Density Lipoprotein 50 mg/dL; Potassium 4.5 mmol/L (3.5-5.1); Protein, Total 7.2 g/dL (6.4-8.2); Sodium Level 138 mmol/L (136-145); Triglycerides 86 mg/dL; Very Low Density Lipoprotein 17 mg/dL (5-40)
[2023-06-12 13:50] LABS: Troponin-I HS 6 pg/mL (3.0-78.0)
== END | disposition home or self-care (01) ==
LOC: BIMLAB 08:41
PROVIDERS: PCP Internal Medicine; Referring Provider Internal Medicine; Visit Provider Internal Medicine
DX: R00.2 Palpitations (principal); R07.89 Other chest pain; I10 Essential (primary) hypertension
CPT/HCPCS: 36415; 80053; 80061; 84484; 85025

== ENCOUNTER → 2024-02-23 | Outpatient (CLI) | payer OTHER, SELFPAY ==
[2024-02-23 12:04] LABS: Absolute Lymphocyte Count 2.16 X10^3/uL (0.83-4.51); Absolute Neutrophil Count 4.9 X10^3/uL (2.0-7.7); Basophil# 0.04 X10^3/uL; Basophil% 0.5 % (0-1); Eosinophil# 0.07 X10^3/uL; Eosinophils% 0.9 % (0-5); Hematocrit 40.7 % (40-54); Hemoglobin 13.9 g/dL (13.0-16.5); Lymphocyte # 2.16 X10^3/ul (0.83-4.51); Lymphocyte % 27.7 % (19-41); Mean Corp Hgb Conc 34.2 g/dL (32-36); Mean Corpuscular Hgb 29.7 pg (27.0-32.0); Mean Platelet Vol. 10.3 fl (6.2-12.0); Monocyte# 0.58 X10^3/uL; Monocyte% 7.4 % (0-10); NRBC Flagged by Analyzer 0 % (0-5); Neutrophil # 4.92 X10^3/uL (2.7-7.7); Neutrophil % 63.1 % (47-70); Platelet Count 281 K/mm3 (150-450); RBC Distribution Width CV 11.7 % (11.6-14.6); Red Blood Count 4.68 M/mm3 (4.6-6.2); White Blood Count 7.8 K/mm3 (4.4-11.0)
[2024-02-23 12:33] LABS: ALB/GLOB Ratio 1.1 RATIO (0.9-2.4); AST(SGOT) 15 U/L (15-37); Alanine Aminotransfer ALT/SGPT 21 U/L (16-61); Albumin, Serum 4.1 g/dL (3.2-5.0); Alkaline Phosphatase 80 U/L (45-117); Anion Gap 5 (5-15); BUN 13 mg/dL (7-18); BUN/Creat Ratio 13.1 RATIO (10-20); Calcium,Total 8.8 mg/dL (8.5-10.1); Chloride 108 mmol/L (98-107); Cholesterol 181 mg/dL (200); Creatinine, Serum 0.99 mg/dL (0.70-1.30); EST Glomerular Filtration Rate 89 mL/min (>60); Est Glom Filt Rate - Afr Amer 108 mL/min (>60); Globulin 3.6 g/dL (2.2-4.2); Glucose 101 mg/dL (74-106); High Density Lipoprotein 47 mg/dL; Potassium 4.2 mmol/L (3.5-5.1); Protein, Total 7.7 g/dL (6.4-8.2); Sodium Level 140 mmol/L (136-145); Triglycerides 56 mg/dL; Very Low Density Lipoprotein 11 mg/dL (5-40)
== END | disposition home or self-care (01) ==
LOC: BIMLAB 09:10
PROVIDERS: PCP Internal Medicine; Referring Provider Internal Medicine; Visit Provider Internal Medicine
DX: Z00.00 Encounter for general adult medical examination without abnormal findings (principal)
CPT/HCPCS: 36415; 80053; 80061; 85025

== ENCOUNTER → 2024-11-05 | Outpatient (CLI) | payer OTHER, SELFPAY ==
--- NOTE | 2024-11-05 08:32 | EKG12_ITS ---
Test Reason : PALPITATIONS Blood Pressure : */* mmHG Vent. Rate : 54 BPM Atrial Rate : 54 BPM P-R Int : 164 ms QRS Dur : 96 ms QT Int : 422 ms P-R-T Axes : 55 6 32 degrees QTcB Int : 400 ms Sinus bradycardia Otherwise normal ECG Confirmed by ROYA ATKINS, ANDRE ([id number]), deputy editor in chief BREE PERALTA ([id number]) on 11/06/2024 6:05:43 AM Referred By: Noam Lott Confirmed By: ANDRE PRYOR MD
== END | disposition home or self-care (01) ==
LOC: PSN 08:32
PROVIDERS: PCP Internal Medicine; Referring Provider Physician Assistant; Visit Provider Physician Assistant
DX: R00.2 Palpitations (principal)
CPT/HCPCS: 93005; 93225; 93226

== ENCOUNTER 2024-11-26 14:52 | Emergency (ER) | payer OTHER, SELFPAY ==
[2024-11-26 14:53] VITALS: BP 160/104; PULSE 64; RESP 18; TEMP 36.3; O2SAT 100; BMI 34.0
--- NOTE | 2024-11-26 14:57 | EKG12_ITS ---
Test Reason : PALPITATIONS Blood Pressure : */* mmHG Vent. Rate : 58 BPM Atrial Rate : 58 BPM P-R Int : 158 ms QRS Dur : 98 ms QT Int : 418 ms P-R-T Axes : * -57 -78 degrees QTcB Int : 410 ms Sinus bradycardia Left axis deviation Abnormal ECG NST CHANGES, INFERIOR Confirmed by Julio Gamboa ([id number]), editorial cartoonist SNEHA SMITH ([id number]) on 11/27/2024 9:25:31 AM Referred By: Confirmed By: Julio Gamboa
[2024-11-26 15:21] LABS: Absolute Lymphocyte Count 2.59 X10^3/uL (0.83-4.51); Absolute Neutrophil Count 6.8 X10^3/uL (2.0-7.7); Basophil# 0.04 X10^3/uL; Basophil% 0.4 % (0-1); Eosinophil# 0.11 X10^3/uL; Eosinophils% 1.1 % (0-5); Hematocrit 40.1 % (40-54); Hemoglobin 13.8 g/dL (13.0-16.5); Lymphocyte # 2.59 X10^3/ul (0.83-4.51); Lymphocyte % 25.3 % (19-41); Mean Corp Hgb Conc 34.4 g/dL (32-36); Mean Corpuscular Hgb 29.6 pg (27.0-32.0); Mean Corpuscular Volume 86.1 fL (80-94); Mean Platelet Vol. 10.4 fl (6.2-12.0); Monocyte# 0.64 X10^3/uL; Monocyte% 6.3 % (0-10); NRBC Flagged by Analyzer 0 % (0-5); Neutrophil # 6.83 X10^3/uL (2.7-7.7); Neutrophil % 66.6 % (47-70); Platelet Count 258 K/mm3 (150-450); RBC Distribution Width CV 11.7 % (11.6-14.6); RBC Distribution Width SD 36.2 fl (35.1-43.9); Red Blood Count 4.66 M/mm3 (4.6-6.2); White Blood Count 10.2 K/mm3 (4.4-11.0)
[2024-11-26 15:42] LABS: Anion Gap 4 (5-15); BUN 15 mg/dL (7-18); Calcium,Total 9.5 mg/dL (8.5-10.1); Chloride 105 mmol/L (98-107); Creatinine, Serum 0.94 mg/dL (0.70-1.30); EST Glomerular Filtration Rate 96 mL/min (>60); Est Glom Filt Rate - Afr Amer 116 mL/min (>60); Estimated Creatinine Clearance 149.36 ml/min; Glucose 96 mg/dL (74-106); Sodium Level 139 mmol/L (136-145); Troponin-I HS (w/2H Reflex) < 3 pg/mL (3.0-78.0)
--- NOTE | 2024-11-26 16:37 | EX.ED.DYSGE1 ---
HPI History of Present Illness Chief Complaint: Palpitations Detail of Chief Complaint: Palpitations, heart pounding Informant: patient Onset/Context/Timing Onset: Today Context: Sudden Onset Timing: Intermittent Quality: Pounding. Location: Chest Current Severity: Gone Maximum Severity: Moderate Worsened by: Patient notices when he is not doing anything Relieved by: Not applicable Associated Symptoms Associated Symptoms: None Narrative Narrative: Patient is a 39-year-old male. He has history of hypertension, migraine headaches and palpitations. He had a recent Holter monitor which revealed nonsustained V. tach of 7 beats. The Holter monitor was otherwise unremarkable. Patient had palpitations today. He did heart tracing he is noted to have a normal sinus rhythm. His heart rate then throughout the day has been between 52 and 108. When he had the sensation of his heart pounding/palpitations his heart rate was in the 60s. He had no associated symptoms. Patient denied abdominal pain. He denies black or maroon stool. Prior similar symptoms: Yes Recent Illness/Hospitalization: No PFSH PFSH Medical History Preventative health care Migraine without aura and without status migrainosus, not intractable Localized swelling of back Sebaceous cyst Flu vaccine need Migraine Hypertension History of fracture of finger History of fracture of nose Home Medications ?Medication ?Instructions ?Recorded ?Last Taken ?Type multivitamin 1 tab PO DAILY 05/04/21 Unknown History propranolol 20 mg tablet 20 mg PO BID #180 tabs 05/13/24 Unknown Rx Allergy/AdvReac Type Severity Reaction Status Date / Time No Known Allergies Allergy Verified 11/26/24 14:53 Family History Father Hyperlipemia Grandfather Hyperlipemia Uncle Myocardial infarction, Onset Age: 56 Surgical History History of tonsillectomy Social History Smoking Status: Never smoker Electronic Cigarette Use: not used second hand exposure: No alcohol intake: current alcohol intake frequency: a few times a week substance use type: does not use what type of physical activity do you participate in: running and weight training frequency: daily ROS ROS ED Constitutional Constitutional ED: Denies chills or fever(s) Cardiovascular Cardiovascular: Reports palpitations; Denies chest pain, orthopnea or racing heartbeat Respiratory/Chest Respiratory/Chest: Denies dyspnea, dyspnea on exertion or orthopnea Gastrointestinal Gastrointestinal: Denies nausea or vomiting Integumentary Denies rash Neurologic Neurologic: Denies paresthesias or weakness Hematologic/Lymphatic Hematologic/Lymphatic: Reports systems reviewed and no addt'l complaints, except as documented EXAM Physical Exam Const Vital Signs: 11/26/24 14:53 Temperature 97.4 F L Temperature Source Temporal Pulse Rate 64 Respiratory Rate 18 Blood Pressure 160/104 H Blood Pressure Mean 122 Pulse Ox 100 Oxygen Delivery Method Room Air Positive well nourished and well developed Constitutional Narrative: BMI is 34.0. General Appearance ED: well developed and NAD; Negative for cyanotic, diaphoretic or pallor HEENT Reports moist mucous membranes HEENT Narrative: Head is atraumatic and normocephalic. Ears normal. Eyes PERRL and EOMs intact bilaterally General Eye ED: Negative for scleral icterus Neck supple and no JVD Resp normal respiratory effort and clear to auscultation bilaterally Cardio regular rate, regular rhythm, S1 normal heart sound, S2 normal heart sound and no murmurs GI normal to inspection, nondistended, normoactive bowel sounds, non-tender and non-distended; Negative for hepatosplenomegaly Extremity normal to inspection Neuro oriented x3 and CN's II-XII intact bilaterally Sensorium / Orientation: alert Psych mental status grossly normal Skin no rashes or lesions noted, no wounds and skin turgor normal General Skin Exam: Negative for jaundice or pallor MDM MDM MDM Narrative Medical decision making narrative: Nurse protocol orders were initiated. Chest x-ray was canceled. Patient was placed on monitor. Monitor reveals normal sinus rhythm rate of 66 with no ectopy. [place] panel was obtained to assess for hypokalemia. Also assess glucose and renal function. CBC to rule out anemia. Outside records indicate he had a Holter monitor which was insignificant. 7 beats of nonsustained V. tach is not significant. He apparently is scheduled to see a fur grader in 1 to 2 weeks. History & Record Review Additional record(s) reviewed:: Prior outpatient record (Holter monitor that was obtained 2 weeks ago.) Lab Data Attestation: I reviewed the patient's lab results. Lab results narrative: CBC is normal. Electrolyte panel is normal. Troponin is less than 3. Labs: Laboratory Results - last 24 hr 11/26/24 15:14 WBC 10.2 RBC 4.66 Hgb 13.8 Hct 40.1 MCV 86.1 MCH 29.6 MCHC 34.4 RDW Std Deviation 36.2 RDW Coeff of Wendy 11.7 Plt Count 258 MPV 10.4 Immature Gran % (Auto) 0.300 Neut % (Auto) 66.6 Lymph % (Auto) 25.3 [place] % (Auto) 6.3 Eos % (Auto) 1.1 Baso % (Auto) 0.4 Absolute Neuts (auto) 6.8 Absolute Lymphs (auto) 2.59 Nucleated RBC % 0 Sodium 139 Potassium 4.0 Chloride 105 Carbon Dioxide 29.0 Anion Gap 4 L BUN 15 Creatinine 0.94 Estim Creat Clear Calc 149.36 Est GFR (MDRD) Af Amer 116 Est GFR (MDRD) Non-Af 96 BUN/Creatinine Ratio 16.0 Glucose 96 Calcium 9.5 Troponin I High Sens < 3 L Rhythm Strip Rhythm Strip: Sinus Rhythm Rate: 66 Discharge Plan Triage Chief Complaint: Palpitations ED Provider: Octaviano Shearer Dx/Rx/DC Orders Clinical Impression: Palpitations, Elevated blood pressure reading with diagnosis of hypertension Instructions: ED Palpitations Prescriptions: No Action multivitamin Tablet 1 tab PO DAILY propranolol 20 mg tablet 20 mg PO BID Qty: 180 5RF Primary Care Provider: Bambi Donohue Referrals: Bambi Donohue MD [Primary Care Provider] - As Needed Print Language: Slovenian Disposition Disposition: Home, Self Care
[2024-11-26 17:06] VITALS: BP 148/96; PULSE 64; RESP 16; TEMP 36.6; O2SAT 97
[2024-11-26 17:07] VITALS: O2SAT 97
[2024-11-26 17:17] LABS: Reflex Troponin-HS? (from REC) Y
== END 2024-11-26 17:09 | disposition home or self-care (01) ==
LOC: ED 16:43
PROVIDERS: Emergency Provider Emergency Medicine; PCP Internal Medicine; Visit Provider Emergency Medicine
DX: R00.2 Palpitations (principal); I10 Essential (primary) hypertension; Z79.899 Other long term (current) drug therapy
CPT/HCPCS: 80048; 84484; 85025; 93005; 99283; A4216

== ENCOUNTER → 2024-12-05 | Outpatient (CLI) | payer OTHER, SELFPAY ==
--- NOTE | 2024-12-05 07:50 | ECHOCS_ITS ---
Reason For Study: Palpitations Procedure This was a 2D Doppler, Color Flow transthoracic echocardiogram. Contrast injection was performed. The study was technically difficult. Exam performed in department. Left Ventricle Normal LV size. Left ventricular systolic function is normal. The left ventricular ejection fraction is 60 %. No regional wall motion abnormalities noted. Right Ventricle Normal RV size. Atria Normal left atrium. Normal right atrium. Mitral Valve Normal mitral valve. Tricuspid Valve Normal tricuspid valve. Aortic Valve Trisinus/trileaflet aortic valve. Great Vessels Normal aortic root. Pericardium/Pleural No pericardial effusion. Medication 22 gauge I.V. with prn adaptor inserted into left arm. Diluted definity 3ml given slow IV push to enhance endocardial definition. MMode/2D Measurements & Calculations LVIDd: 4.8 cm IVSd: 1.1 cm Ao root diam: 3.4 cm LVIDs: 3.6 cm LVPWd: 1.1 cm RVDd: 4.3 cm FS: 25.0 % LAV(MOD-bp): 62.1 ml LVAd ap4: 44.3 cm2 SV(MOD-sp4): 96.7 ml LAV(MOD-bp) Indexed: 25.3 ml/m2 LVLd ap4: 9.1 cm SI(MOD-sp4): 39.4 ml/m2 LAV(MOD-sp2): 63.0 ml EDV(MOD-sp4): 177.0 ml LAV(MOD-sp4): 56.2 ml EDV(sp4-el): 183.9 ml LVAs ap4: 27.2 cm2 LVLs ap4: 7.5 cm ESV(MOD-sp4): 80.3 ml ESV(sp4-el): 84.1 ml EF(MOD-sp4): 54.6 % EF(sp4-el): 54.3 % SV(sp4-el): 99.9 ml LA A4 area: 18.5 cm2 LA dimension(2D): 4.3 cm Time Measurements MV dec time: 0.16 sec Doppler Measurements & Calculations MV E max justen: 85.1 cm/sec Lat Peak E' Justen: 15.8 cm/sec Med Peak E' Justen: 11.1 cm/sec MV A max justen: 62.4 cm/sec E/E' lat: 5.4 E/E' med: 7.7 MV E/A: 1.4 MV V2 max: 85.7 cm/sec MV P1/2t max justen: 86.7 cm/sec Ao V2 max: 122.6 cm/sec MV max P.9 mmHg MV P1/2t: 49.8 msec Ao max P.0 mmHg MV V2 mean: 39.9 cm/sec Ao V2 mean: 89.0 cm/sec MV mean P.81 mmHg MV dec slope: 509.5 cm/sec2 Ao mean P.6 mmHg MV V2 VTI: 24.2 cm MVA(P1/2t): 4.4 cm2 Ao V2 VTI: 31.2 cm AV (velocity ratio): 0.68 LV V1 max: 94.6 cm/sec PA V2 max: 113.3 cm/sec LV V1 max P.6 mmHg PA V2 mean: 75.7 cm/sec LV V1 mean P.0 mmHg LV V1 mean: 66.5 cm/sec LV V1 VTI: 21.3 cm ECHO/Echo Complete W/ Contrast Interpretation Summary Normal LV size. Left ventricular systolic function is normal. The left ventricular ejection fraction is 60 %. Contrast injection was performed. Structurally normal valves. Ordering Physician: Noam Lott Referring Physician: Noam Lott Performed By: Tray Pryor RCS
== END | disposition home or self-care (01) ==
PROVIDERS: PCP Internal Medicine; Referring Provider Physician Assistant; Visit Provider Physician Assistant
DX: R94.31 Abnormal electrocardiogram [ECG] [EKG] (principal)
CPT/HCPCS: 93306; Q9957; A4216; C8929

== ENCOUNTER → 2024-12-17 | Outpatient (CLI) | payer OTHER, SELFPAY ==
[2024-12-17 10:36] LABS: Absolute Neutrophil Count 4.7 X10^3/uL (2.0-7.7); Basophil# 0.04 X10^3/uL; Basophil% 0.5 % (0-1); Eosinophils% 1.4 % (0-5); Hematocrit 41.7 % (40-54); Hemoglobin 14.6 g/dL (13.0-16.5); Lymphocyte % 25.8 % (19-41); Mean Corpuscular Hgb 29.8 pg (27.0-32.0); Mean Corpuscular Volume 85.1 fL (80-94); Mean Platelet Vol. 10.3 fl (6.2-12.0); Monocyte# 0.56 X10^3/uL; Monocyte% 7.6 % (0-10); NRBC Flagged by Analyzer 0 % (0-5); Neutrophil # 4.73 X10^3/uL (2.7-7.7); Neutrophil % 64.3 % (47-70); Platelet Count 289 K/mm3 (150-450); RBC Distribution Width CV 11.6 % (11.6-14.6); RBC Distribution Width SD 35.7 fl (35.1-43.9); White Blood Count 7.4 K/mm3 (4.4-11.0)
[2024-12-17 11:10] LABS: AST(SGOT) 16 U/L (15-37); Alanine Aminotransfer ALT/SGPT 25 U/L (16-61); Alkaline Phosphatase 89 U/L (45-117); Anion Gap 4 (5-15); BUN 10 mg/dL (7-18); BUN/Creat Ratio 11.5 RATIO (10-20); Calcium,Total 9.1 mg/dL (8.5-10.1); Chloride 104 mmol/L (98-107); Creatinine, Serum 0.87 mg/dL (0.70-1.30); EST Glomerular Filtration Rate 104 mL/min (>60); Est Glom Filt Rate - Afr Amer 126 mL/min (>60); Glucose 98 mg/dL (74-106); Magnesium 2.2 mg/dL (1.6-2.6); Potassium 4.4 mmol/L (3.5-5.1); Sodium Level 137 mmol/L (136-145); Thyroid Stim Hormone (TSH) 0.797 uIU/mL (0.358-3.740); Troponin-I HS 3 pg/mL (3.0-78.0)
== END | disposition home or self-care (01) ==
LOC: LAB 09:39
PROVIDERS: Physician Assistant; PCP Internal Medicine; Referring Provider Internal Medicine Cardiovascular Disease; Visit Provider Internal Medicine Cardiovascular Disease
DX: R00.2 Palpitations (principal)
CPT/HCPCS: 80053; 83735; 84443; 84484; 85025

== ENCOUNTER → 2025-01-13 | Outpatient (CLI) | payer OTHER, SELFPAY ==
--- NOTE | 2025-01-14 16:30 | STRESSREP ---
Stress Test Report Date: 01/13/2025 Procedure: Exercise tolerance test/imaging study Indications: Abnormal EKG Consent: Per the patient Procedure: The patient exercised on a Evan protocol for 12 minutes achieving a peak heart rate of 164 bpm (90% predicted maximal heart rate) with a peak blood pressure 194/82 mmHg and a peak MET capacity of 13.7 METs. The baseline ECG demonstrated normal sinus rhythm poor R wave progression in the anterior leads. The peak exercise ECG demonstrated no significant ischemic changes. EKG during recovery revealed no significant ischemic changes [There were no cardiac dysrhythmias pretest, during exercise, or recovery]. The functional capacity was considered excellent for age. There was [no complaint of chest discomfort during exercise or recovery]. The examination was discontinued secondary to achieving target heart rate. Impression: 1. Technically adequate (percent predicted maximal heart rate greater than 85%) exercise tolerance test 2. Stress test is negative for exercise-induced EKG changes of ischemia 3. The test test is negative for exercise-induced chest pain 4. Functional capacity is excellent for age 5. Nuclear images pending Myocardial perfusion imaging study: Technique: The patient was injected with 14.8 mCi of technetium 99m Cardiolite and subsequently rest SPECT Cardiolite nuclear imaging was obtained in the horizontal long, vertical long, and short axis views. The patient exercised on a Evan protocol. Please see above for details. The patient was injected with 45 mCi of technetium 99m Cardiolite and subsequently stress SPECT Cardiolite nuclear imaging was obtained in the horizontal long, vertical long, and short axis views. A gated Cardiolite study at peak stress was obtained. Interpretation: Rest and stress SPECT Cardiolite nuclear imaging status post realignment, normalization, and attenuation correction, demonstrates no evidence of significant ischemia or infarction. The gated Cardiolite study demonstrates no significant regional wall motion abnormalities. The reported LVEF is 65%. Impression: 1. There is no evidence of significant ischemia or infarction. 2. The gated Cardiolite study reports an LVEF of 65%. This note was generated with [employer] software. It may contain incorrect words, spelling, and punctuation that were not noted in checking the note before signing.
== END | disposition home or self-care (01) ==
LOC: CVS 06:30
PROVIDERS: PCP Internal Medicine; Referring Provider Internal Medicine; Visit Provider Internal Medicine
DX: R94.31 Abnormal electrocardiogram [ECG] [EKG] (principal); I10 Essential (primary) hypertension; R00.2 Palpitations
CPT/HCPCS: 78452; 93017; A9500; A4216

== ENCOUNTER 2025-01-24 06:43 | Outpatient (CLI) | payer OTHER, SELFPAY ==
--- NOTE | 2025-01-24 06:48 | CT_ITS ---
PROCEDURE: LIMITED CHEST CT CARDIAC ONLY REASON FOR EXAM: Chest heaviness and palpitations. No family history. TECHNIQUE: Chest CT without contrast. COMPARISON: None. FINDINGS: Findings suggestive of gynecomastia. Lymph nodes: No mediastinal hilar or axillary lymphadenopathy. Heart and Vasculature: Normal heart size. No pericardial effusion. Thoracic aorta and pulmonary arteries have normal contours; noncontrast technique limits evaluation. Coronary Artery Calcifications: Present Lungs and Airways: The lungs are normally expanded and clear. Pleura: No pleural effusion. No pneumothorax. Upper Abdomen: Small hiatal hernia.1 Bones: Bone windows are unremarkable. CT/Limited Chest CT Cardiac Only IMPRESSION: Coronary artery calcification. One or more dose reduction techniques were used (e.g., Automated exposure contr ol, adjustment of the mA and/or kV according to patient size, use of iterative reconstruction technique). Reading Location: [id number]
--- NOTE | 2025-02-03 07:46 | CA.SCORE ---
Calcium Scoring Date of Study:: 01/24/25 Indications Indications: Palpitations Coronary Calcium Scoring: High-resolution Computed Tomographic imaging of the chest was performed on [01/24/2025], with particular attention paid to the coronary arteries. Images from the examination were analyzed for the presence and extent of coronary artery calcification , using coronary calcium quantification software. The patient tolerated the procedure well and there were no complications. The results of the coronary calcification analysis are provided below. Findings Coronary Artery Left Main (LM): 0 Left Anterior Descending (LAD): 109 Left Circumflex (LCX): 0 Right Coronary Artery (RCA): 0 Total Agatston Score: 109 Percentile Rankinth percentile Calcium Scoring Interpretation: Different methods to categorize the overall amount of coronary plaque. Overall amount CAC SIS Visual of coronary plaque P1 Mild -100 <2 1-2 vessels with mild amount of plaque P2 Moderate 101-300 3-4 1-2 vessels with moderate amount, 3 vessels with mild amount of plaque P3 Severe 301-999 5-7 3 vessels with moderate amount, 1 vessel with severe amount of plaque P4 Extensive >1000 >8 2-3 vessels with severe amount of plaque Calcium Score: Mild: 1-2 vessels w/mild amount of plaque Conclusion: Premature atherosclerotic plaquing noted in the LAD distribution.
== END 2025-01-24 23:59 | disposition home or self-care (01) ==
LOC: CT 06:46
PROVIDERS: PCP Internal Medicine; Referring Provider Internal Medicine Cardiovascular Disease; Visit Provider Internal Medicine Cardiovascular Disease
DX: R94.31 Abnormal electrocardiogram [ECG] [EKG] (principal); I47.29 Other ventricular tachycardia; R07.89 Other chest pain; I10 Essential (primary) hypertension; R00.2 Palpitations; I25.10 Atherosclerotic heart disease of native coronary artery without angina pectoris
CPT/HCPCS: 75571; 76380